=== PATIENT | male | born 1985 | race Two or more races ===

== ENCOUNTER 2021-07-14 07:16 | Emergency (ER) | payer MEDICAID ==
[~2021-07-14] VITALS: Ht 165.1 cm; Wt 68.0 kg
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
--- NOTE | 2021-07-14 08:35 | NUR ---
WILLIAM FISHER CALLED FOR EVAL
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
[2021-07-14 10:52] VITALS: BP 123/80
--- NOTE | 2021-07-14 10:52 | NUR ---
Patient discharged to home in stable condition. Written and verbal after care instructions given. Patient verbalizes understanding of instruction.
== END 2021-07-14 10:53 | disposition home or self-care (01) ==
LOC: ER 07:19
DX: F15.10 Other stimulant abuse, uncomplicated (principal)